=== PATIENT | male | born 1985 | race Caucasian/White ===

== ENCOUNTER 2020-01-15 14:30 | Emergency (ER) | payer OTHER ==
[~2020-01-15] VITALS: Ht 180.3 cm; Wt 103.0 kg
[~2020-01-15 14:30] MED LIST: PEPCID40 MG PO; ZOFRAN4 MG PO
[2020-01-15] MEDS ORDERED: DICLOFENAC SOD100 MG PO (19:53)
[2020-01-15] MEDS ORDERED: SKELAXIN800 MG PO (19:53)
== END 2020-01-15 20:32 | disposition home or self-care (01) ==
LOC: ER 14:30
DX: M54.5 Low back pain (principal)

== ENCOUNTER 2021-04-17 12:34 | Emergency (ER) | payer OTHER ==
[~2021-04-17] VITALS: Ht 180.3 cm; Wt 97.5 kg
[~2021-04-17 12:34] MED LIST changes: +DICLOFENAC SOD100 MG PO; +SKELAXIN800 MG PO
[2021-04-17] MEDS ORDERED: DICLOFENAC POTA50 MG PO (15:21)
[2021-04-17] MEDS ORDERED: CYCLOBENZAPRINE10 MG PO (15:22)
== END 2021-04-17 16:02 | disposition home or self-care (01) ==
LOC: ER 12:34
DX: S33.5XXA Sprain of ligaments of lumbar spine, initial encounter (principal); M62.830 Muscle spasm of back; X50.0XXA Overexertion from strenuous movement or load, initial encounter; Y93.89 Activity, other specified; Y92.89 Other specified places as the place of occurrence of the external cause; Y99.8 Other external cause status

== ENCOUNTER 2022-07-07 13:04 | Emergency (ER) | payer OTHER ==
[~2022-07-07] VITALS: Ht 180.3 cm; Wt 90.7 kg
[~2022-07-07 13:04] MED LIST changes: +CYCLOBENZAPRINE10 MG PO; +DICLOFENAC POTA50 MG PO
== END 2022-07-07 16:13 | disposition home or self-care (01) ==
LOC: ER 13:04
DX: M54.9 Dorsalgia, unspecified (principal); M54.31 Sciatica, right side